=== PATIENT | female | born 1995 | race Caucasian/White ===

== ENCOUNTER 2021-07-24 07:57 | Day surgery (SDC) | payer OTHER ==
[~2021-07-24] VITALS: Ht 160 cm; Wt 78.0 kg
[2021-07-24 08:03] VITALS: BP 145/80
--- NOTE | 2021-07-24 08:08 | NUR ---
Dr. Izaguirre is evaluating patient in triage room
[2021-07-24] MEDS ORDERED: MORPHINE SULFATE 2 MG/ML SYR IVP ONE (08:10)
[2021-07-24] MEDS ORDERED: NACL 0.9% 1,000 ML IV ONE (08:10)
--- NOTE | 2021-07-24 08:12 | NUR ---
PT AMBULATED TO BED 6
--- NOTE | 2021-07-24 08:30 | NUR ---
25 y/o F BIB self from home c/o vaginal bleeding and miscarriage. Patient states she began experiencing lower abdominal cramping and heavy vaginal bleeding. Patient reports saturating pads every 30 minutes with dark red blood and large clots. Patient states unknown amount of clotting per pad; states this morning at ~0600 patient woke up with an urge to urinate. Patient attempted to void and miscarriaged a fetus into the toilet. Patient reports generalized weakness, diaphoresis, and dizziness since this morning. Denies fever, nausea, vomiting, dysuria, vaginal discharge. Pt presented fetus in a black grocery bag which was collected and sent to lab per miscarriage protocols. Patient reports "pain across my low abdomen" 8/10, cramping/constant, radiating to her low back. Denies any medications prior to arrival. LMP unknown; patient states she was not aware she was ; denies any control. G3 T1 L1. Bed locked in lowest position, side rails x 1, call light in reach. PMH/Sx/Meds: Denies NKA
--- NOTE | 2021-07-24 08:35 | NUR ---
UA and blood sample walked to lab and handed to CPT
[2021-07-24 08:38] LABS: BASOPHILS % (AUTO) 0.3 % (0.0-2.0); EOSINOPHILS # (AUTO) 0.2 K/uL (0-0.4); EOSINOPHILS % (AUTO) 2.3 % (0.0-4.0); HEMATOCRIT 37.7 % (36-48); HEMOGLOBIN 12.7 g/dL (12.0-16.0); LYMPHOCYTES % (AUTO) 24.5 % (20.5-51.1); MEAN CORPUSCULAR HEMOGLOBIN 29 pg (27-31); MEAN CORPUSCULAR HGB CONC 34 g/dL (33-37); MEAN CORPUSCULAR VOLUME 84.6 fL (80-94); MONOCYTES # (AUTO) 0.6 K/uL (0.8-1.0); MONOCYTES % (AUTO) 7.8 % (1.7-9.3); NEUTROPHILS # (AUTO) 5.3 K/uL (1.8-7.7); NEUTROPHILS % (AUTO) 65.1 % (42.2-75.2); PLATELET COUNT (AUTO) 383 K/uL (140-450); RED BLOOD CELL COUNT(AUTO) 4.46 MIL/uL (4.20-5.40); RED CELL DISTRIBUTION WIDTH 13.7 % (11.6-13.7); WHITE BLOOD COUNT (AUTO) 8.2 K/uL (4.8-10.8)
--- NOTE | 2021-07-24 08:40 | NUR ---
US tech at bedside
[2021-07-24 08:42] LABS: APPEARANCE,URINE CLOUDY (CLEAR); BILIRUBIN,URINE 2+ (NEGATIVE); BLOOD, URINE 3+ (NEGATIVE); COLOR,URINE RED (YELLOW); LEUKOCYTE ESTERASE ,URINE 2+ (NEGATIVE); NITRITE, URINE POSITIVE (NEGATIVE); PH,URINE 6.5 (5.0-9.0); UGLUCOSE NEGATIVE (NEGATIVE)
--- NOTE | 2021-07-24 08:55 | NUR ---
POC SENT TO LAB
[2021-07-24 08:59] LABS: RBC,URINE 80-100 /HPF (0-5)
--- NOTE | 2021-07-24 09:26 | NUR ---
RAPHAEL SWAB COLLECTED AND SENT TO LAB
--- NOTE | 2021-07-24 10:02 | NUR ---
Spoke with surgery by phone; requested to place order for CMP. Orders place and lab made aware.
[2021-07-24] MEDS ORDERED: METHYLERGONOVINE 0.2 MG/ML AMP IM ONE (10:15)
[2021-07-24 10:16] LABS: ANION GAP 13.1 (8-16); CARBON DIOXIDE 23.2 mmol/L (21-32); CREATININE 0.4 mg/dL (0.6-1.3); POTASSIUM 3.3 mmol/L (3.5-5.1); TOTAL BILIRUBIN 0.3 mg/dL (0.0-1.0)
--- NOTE | 2021-07-24 10:19 | NUR ---
water control supervisor called; advised of patient's last fluid intake of 24 oz Farhana Ice tea and 12oz "Parrot Juice Drink"
--- NOTE | 2021-07-24 10:40 | NUR ---
Patient ambulated to restroom to expel contents; 200mL dark red blood collected onto top hat. Dr. Dugan at ER bedside witnessed contents.
--- NOTE | 2021-07-24 10:51 | NUR ---
Dr. Dugan at bedside for procedure. Charge nurse and EMT at bedside
[2021-07-24] MEDS ORDERED: HYDROmorphone PFS 2 MG/ML SYR IVP STA (10:52)
[2021-07-24] MEDS ORDERED: HYDROmorphone PFS 2 MG/ML SYR ONE (10:53)
--- NOTE | 2021-07-24 10:55 | NUR ---
Dr. Dugan requesting pain medication stat. Dr. Izaguirre made aware, verbal order to pull Dilaudid 2mg IVP, give 1mg IVP at this time.
--- NOTE | 2021-07-24 10:56 | NUR ---
Female Hide Examiner JERRY ESPINAL accompanied DR SESAY FOR A female patient for Pelvic Exam. MULTIPLE LARGE BLOOD CLOTS EXPELLED/REMOVED BY DR SESAY
--- NOTE | 2021-07-24 11:05 | NUR ---
Patient ambulated to restroom to void; few drops of blood collected on top hat. No urine.
--- NOTE | 2021-07-24 11:25 | NUR ---
Report given to JERRY Joseph.
--- NOTE | 2021-07-24 11:35 | NUR ---
Dr. Gay is evaluating patient at bedside.
--- NOTE | 2021-07-24 11:35 | NUR ---
Patient will be admitted to care of Dr. Dugan. Admited to Med/Surg. Will go to room 105B. Belongings list completed. Report to JERRY Joseph.
[2021-07-24] MEDS ORDERED: SEVOFLURANE 250 ML BTL INH ONE (11:45)
[2021-07-24] MEDS ORDERED: fentaNYL citrate 0.05 MG/ML VIAL ONE (11:47)
[2021-07-24] MEDS ORDERED: MIDAZOLAM 2 MG/2 ML VIAL ONE ×2 (11:48)
[2021-07-24] MEDS ORDERED: DEXAMETHASONE 4 MG/ML VIAL ONE ×2 (12:04)
[2021-07-24] MEDS ORDERED: PROPOFOL 200 MG/20 ML VIAL IV ONE ×2 (12:04)
[2021-07-24] MEDS ORDERED: METOCLOPRAMIDE 10 MG/2 ML INJ VIAL ONE (12:04)
[2021-07-24] MEDS ORDERED: ONDANSETRON 4 MG/2 ML VIAL ONE (12:05)
[2021-07-24] MEDS ORDERED: LIDOCAINE 2% 100 MG/5 ML SYR IVP ONE (12:05)
[2021-07-24] MEDS ORDERED: ONDANSETRON 4 MG/2 ML VIAL IVP PRN (12:20)
[2021-07-24] MEDS ORDERED: HYDROmorphone 1 MG/ML AMP IVP PRN (12:20)
[2021-07-24 13:06] VITALS: BP 98/69
--- NOTE | 2021-07-24 13:06 | NUR ---
PT ARRIVED AT UNIT VIA GURNEY, TOLERATED WELL, IV TO R AC 20G, PATENT INTACT, PT ON ROOM AIR, NO SOB NOTED, VSS. INITIAL ASSESSMENT DONE, ALL SAFETY PRECAUTION MET, PT AWAKE ALERT ABLE TO AMBULATE. PER DR LÁZARO MARIE TO DC.
[2021-07-24 13:38] VITALS: BP 98/69
--- NOTE | 2021-07-24 13:51 | NUR ---
PT ATE LUNCH TOLERATED WELL, NO COMPLAINT AT THIS MOMENT.
--- NOTE | 2021-07-24 14:06 | NUR ---
DISCHARGED PAPER SIGNED, PT STABLE, NO DIZZINESS, PAIN OR COMPLAINT AT THIS MOMENT, IV TAKEN OUT CATH INTACT.
--- NOTE | 2021-07-24 14:10 | NUR ---
PT LEFT UNIT, AMBULATORY, NO DISTRESS NOTED, PICKED UP IN LOBBY BY BOYFRIEND. ALL BELONGING TAKEN BY PT.
--- NOTE | 2021-07-25 14:53 | NUR ---
PT STATED SHE WAS UNABLE TO VETERINARY ASSISTANT PRESCRIPTION AFTER DISCHARGED. PRESCRIPTION OF MOTRIN AND IRON WAS FAXED TO [facility]. PHONE NUMBER [phone]. [facility] REP CONFIRMED THEY RECEIVED THE FAXED RX.
== END 2021-07-24 14:17 | disposition home or self-care (01) ==
LOC: MED 07:57 → MDS 09:26 → MMU 09:48 → MTU 11:19 → MDS 14:17
PROVIDERS: ATTEND Obstetrics & Gynecology
DX: O03.4 Incomplete spontaneous abortion without complication (principal)
CPT/HCPCS: 36415; 59812; 76817; 80053; 81001; 84702; 85025; 86900; 86901; 87086; 87426; J1100; J1170; J2001; J2210; J2250; J2270; J2405; J2704; J2765; J3010; J7030; J7120; Q0092

== ENCOUNTER 2022-09-16 17:10 | Emergency (ER) | payer OTHER ==
[~2022-09-16] VITALS: Ht 162.6 cm; Wt 107.0 kg
[2022-09-16 17:30] VITALS: BP 146/99
[2022-09-16] MEDS ORDERED: BACITRACIN OINT 500 UNITS/GM PKT TP ONE (18:25)
[2022-09-16] MEDS ORDERED: LIDOCAINE MPF 1% 10 MG/ML VIAL INJ ONE (18:25)
[2022-09-16] MEDS ORDERED: ACET-10509 PO (18:35)
[2022-09-16] MEDS ORDERED: BACI1PAC6 TP (18:35)
--- NOTE | 2022-09-16 18:45 | NUR ---
27 Y/O FEMALE BIB SELF C/O LAC ON THE FOREHEADXTODAY, PER PT A MIRROR FELL ON HER FOREHEAD, NOTED A LAC ON THE FOREHEAD WITH SOME MINIMAL SWELLING, BLEEDING CONTROLLED. UNKNOWN LAST TDAP NKA PMH: DENIES
[2022-09-16 19:02] VITALS: BP 146/99
--- NOTE | 2022-09-16 19:03 | NUR ---
Patient discharged with v/s stable. Written and verbal after care instructions given and explained. Patient alert, oriented and verbalized understanding of instructions. Ambulatory with steady gait. All questions addressed prior to discharge. ID band removed. Patient advised to follow up with PMD. Rx of TYLENOL AND BACITRACIN given. Patient educated on indication of medication including possible reaction and side effects. Opportunity to ask questions provided and answered.
== END 2022-09-16 19:03 | disposition home or self-care (01) ==
LOC: MED 17:10
DX: S01.81XA Laceration without foreign body of other part of head, initial encounter (principal); W22.8XXA Striking against or struck by other objects, initial encounter; Y93.89 Activity, other specified; Y92.89 Other specified places as the place of occurrence of the external cause; Y99.8 Other external cause status
CPT/HCPCS: 12011; 90471; 90715; 99283; J2001; 12001